=== PATIENT | female | born 1935 | race Caucasian/White ===

== ENCOUNTER 2021-12-16 20:46 | Emergency (ER) | payer MEDICARE ==
[~2021-12-16] VITALS: Ht 167.6 cm; Wt 72.6 kg
[2021-12-16] MEDS ORDERED: LISINOPRIL20 MG PO (20:50)
[2021-12-16] MEDS ORDERED: Clopidogrel75 MG PO (20:50)
[2021-12-16] MEDS ORDERED: DORZOLAMIDE 2%10 ML OP (20:52)
[2021-12-16] MEDS ORDERED: VITAMIN D PO (20:52)
[2021-12-16 21:07] LABS: BASO # 0.1 10*3/uL (0.0-0.1); BASO % 0.9 % (0.0-1.0); EOS # 0.3 10*3/uL (0.0-0.4); EOS % 3.9 % (1.0-4.0); HEMATOCRIT 38.8 % (37.0-47.0); LYMPH # 1.9 10*3/uL (1.3-4.4); LYMPH % 24.6 % (27.0-41.0); MEAN CELL VOLUME 94.6 fl (81.0-99.0); MEAN CORPUSCULAR HGB 31.5 pg (27.0-31.0); MEAN CORPUSCULAR HGB CONC 33.2 g/dl (33.0-37.0); MEAN PLATELET VOLUME 12.2 fl (9.6-12.3); MONO # 0.7 10*3/uL (0.1-1.0); MONO % 8.5 % (3.0-9.0); NEUT # 4.9 10*3/uL (2.3-7.9); NEUT % 61.7 % (47.0-73.0); PLATELET COUNT AUTOMATED 224 10*3/uL (130-400); WHITE BLOOD COUNT 7.9 10*3/uL (4.8-10.8)
[2021-12-16 21:26] LABS: ALKALINE PHOSPHATASE 89 U/L (45-117); BUN 18 mg/dl (7-24); CHLORIDE 110 mmol/L (98-107); CREATININE 0.94 mg/dL (0.55-1.02); POTASSIUM 3.8 mmol/L (3.5-5.1); SGOT/AST 23 IU/L (3-35); SGPT/ALT 21 U/L (12-78); SODIUM 141 mmol/L (136-145); TOTAL PROTEIN 7.8 gm/dL (6.4-8.2)
[2021-12-16 21:50] LABS: BILIRUBIN Negative (Negative); BLOOD Negative (Negative); CLARITY Clear (Clear); COLOR Yellow (Yellow); GLUCOSE Negative (Negative); KETONE Negative (Negative); LEUKO ESTERASE Trace (Negative); NITRITE Negative (Negative); PH 6.5 (4.5-8.0); UROBILINOGEN 0.2 E.U./dl (0.0-1.0)
[2021-12-16 22:02] LABS: BACTERIA 1+
== END 2021-12-16 22:07 | disposition home or self-care (01) ==
LOC: ED 20:46
PROVIDERS: Internal Medicine
DX: F03.91 Unspecified dementia, unspecified severity, with behavioral disturbance (principal); I12.9 Hypertensive chronic kidney disease with stage 1 through stage 4 chronic kidney disease, or unspecified chronic kidney disease; N18.31 Chronic kidney disease, stage 3a; Z79.899 Other long term (current) drug therapy

== ENCOUNTER → 2022-06-25 | Outpatient (CLI) | payer MEDICARE ==
[~2022-06-25] MED LIST: Clopidogrel75 MG PO; DORZOLAMIDE 2%10 ML OP; LISINOPRIL20 MG PO; VITAMIN D PO
== END | disposition home or self-care (01) ==
LOC: US 09:59
PROVIDERS: ATTEND Urology
DX: N85.8 Other specified noninflammatory disorders of uterus (principal)

== ENCOUNTER 2022-08-21 07:35 | Emergency (ER) | payer MEDICARE ==
[~2022-08-21] VITALS: Wt 55.8 kg
[2022-08-21] MEDS ORDERED: CELEXA10 MG PO (08:25)
[2022-08-21] MEDS ORDERED: COSOPT 2%-0.5%10 ML OPH (08:25)
[2022-08-21] MEDS ORDERED: CLOPIDOGREL75 MG PO (08:25)
[2022-08-21] MEDS ORDERED: HYDROXYZINE HCL25 MG PO (08:26)
[2022-08-21] MEDS ORDERED: LISINOPRIL20 MG PO (08:27)
[2022-08-21] MEDS ORDERED: LATANOPROST 2.2.5 ML OP (08:27)
[2022-08-21] MEDS ORDERED: MUCINEX ER600 MG PO (08:28)
[2022-08-21] MEDS ORDERED: NAMENDA10 MG PO (08:32)
[2022-08-21] MEDS ORDERED: PHENAZOPYRIDIN100 M1 PO (08:33)
[2022-08-21] MEDS ORDERED: PRESERVISION A1 EAC4 PO (08:34)
[2022-08-21] MEDS ORDERED: TYLENOL EXTRA500 MG PO (08:35)
[2022-08-21] MEDS ORDERED: VITAMIN D250 MC1 PO (08:36)
[2022-08-21 09:46] LABS: BASO # 0.1 10*3/uL (0.0-0.1); EOS # 0.3 10*3/uL (0.0-0.4); EOS % 3.4 % (1.0-4.0); HEMATOCRIT 35.8 % (37.0-47.0); LYMPH # 1.2 10*3/uL (1.3-4.4); LYMPH % 14.8 % (27.0-41.0); MEAN CORPUSCULAR HGB 31.2 pg (27.0-31.0); MEAN CORPUSCULAR HGB CONC 33.5 g/dl (33.0-37.0); MEAN PLATELET VOLUME 12.1 fl (9.6-12.3); MONO # 0.8 10*3/uL (0.1-1.0); MONO % 9.9 % (3.0-9.0); NEUT # 5.8 10*3/uL (2.3-7.9); NEUT % 70.5 % (47.0-73.0); PLATELET COUNT AUTOMATED 234 10*3/uL (130-400); RED BLOOD COUNT 3.85 10*6/uL (4.10-5.10); RED CELL DISTRI WIDTH 13.1 % (0-14.5); WHITE BLOOD COUNT 8.2 10*3/uL (4.8-10.8)
[2022-08-21 09:56] LABS: ACT PARTIAL THROMBO TIME 25.4 SECONDS (20.0-32.1)
[2022-08-21 10:02] LABS: ALKALINE PHOSPHATASE 99 U/L (45-117); BUN 18 mg/dl (7-24); CHLORIDE 108 mmol/L (98-107); CREATININE 0.97 mg/dL (0.55-1.02); LIPASE 354 U/L (73-393); POTASSIUM 4.1 mmol/L (3.5-5.1); SGPT/ALT 16 U/L (12-78); SODIUM 140 mmol/L (136-145)
== END 2022-08-21 10:51 ==
LOC: ED 07:35
PROVIDERS: Emergency Medicine
DX: N81.10 Cystocele, unspecified (principal); Z79.899 Other long term (current) drug therapy

== ENCOUNTER → 2023-03-12 | Outpatient (CLI) | payer MEDICARE, MEDICAID ==
[~2023-03-12] MED LIST changes: +CELEXA10 MG PO; +CLOPIDOGREL75 MG PO; +COSOPT 2%-0.5%10 ML OPH; +HYDROXYZINE HCL25 MG PO; +LATANOPROST 2.2.5 ML OP; +MUCINEX ER600 MG PO; +NAMENDA10 MG PO; +PHENAZOPYRIDIN100 M1 PO; +PRESERVISION A1 EAC4 PO; +TYLENOL EXTRA500 MG PO; +VITAMIN D250 MC1 PO
== END | disposition home or self-care (01) ==
LOC: US 03-06 13:00
PROVIDERS: ATTEND Urology
DX: N13.39 Other hydronephrosis (principal); N20.0 Calculus of kidney

== ENCOUNTER 2024-04-27 16:59 | Emergency (ER) | payer MEDICARE, MEDICAID ==
[2024-04-27 17:20] LABS: BILIRUBIN Negative (Negative); BLOOD Negative (Negative); CLARITY Clear (Clear); COLOR Yellow (Yellow); GLUCOSE Negative (Negative); KETONE Negative (Negative); LEUKO ESTERASE Trace (Negative); NITRITE Negative (Negative); UROBILINOGEN 0.2 E.U./dl (0.0-1.0)
[2024-04-27 17:27] LABS: URINE AMPHETAMINES Negative (1000ng/ml); URINE BARBITURATES Negative (200ng/ml); URINE BENZODIAZEPINES Negative (200ng/ml); URINE CANNABINOIDS (THC) Negative (50ng/ml); URINE COCAINE Negative (300ng/ml); URINE METHADONE Negative (300ng/ml); URINE OPIATES Negative (300ng/ml); URINE PHENCYCLIDINE Negative (25ng/ml)
[2024-04-27 17:34] LABS: EPITHELIAL CELLS 0-2; RBC 0-2 rbc/hpf (0-2)
[2024-04-27 17:47] LABS: BASO # 0.1 10*3/uL (0.0-0.1); BASO % 1.2 % (0.0-1.0); EOS # 0.4 10*3/uL (0.0-0.4); EOS % 5.4 % (1.0-4.0); HEMATOCRIT 39.1 % (37.0-47.0); LYMPH # 2.1 10*3/uL (1.3-4.4); LYMPH % 28.5 % (27.0-41.0); MEAN CELL VOLUME 96.1 fl (81.0-99.0); MEAN CORPUSCULAR HGB 31.2 pg (27.0-31.0); MEAN CORPUSCULAR HGB CONC 32.5 g/dl (33.0-37.0); MEAN PLATELET VOLUME 11.8 fl (9.6-12.3); MONO # 0.7 10*3/uL (0.1-1.0); NEUT # 3.9 10*3/uL (2.3-7.9); NEUT % 54.6 % (47.0-73.0); PLATELET COUNT AUTOMATED 201 10*3/uL (130-400); RED BLOOD COUNT 4.07 10*6/uL (4.10-5.10); RED CELL DISTRI WIDTH 13.3 % (0-14.5); WHITE BLOOD COUNT 7.2 10*3/uL (4.8-10.8)
[2024-04-27 17:58] LABS: ACT PARTIAL THROMBO TIME 26.8 SECONDS (20.0-32.1)
[2024-04-27 18:12] LABS: ALKALINE PHOSPHATASE 97 U/L (46-116); BUN 18 mg/dl (9-23); CHLORIDE 107 mmol/L (98-107); CPK 71 U/L (34-171); LIPASE 56 U/L (12-53); POTASSIUM 4.4 mmol/L (3.4-5.1); SGPT/ALT 19 U/L (5-49); TOTAL PROTEIN 7.4 gm/dL (6.0-8.0)
[2024-04-27 18:17] LABS: ETHYL ALCOHOL < 3.0 mg/dl (<3)
== END 2024-04-27 19:50 | disposition home or self-care (01) ==
LOC: ED 16:59
PROVIDERS: Internal Medicine
DX: F03.90 Unspecified dementia, unspecified severity, without behavioral disturbance, psychotic disturbance, mood disturbance, and anxiety (principal); I10 Essential (primary) hypertension

== ENCOUNTER 2024-07-11 18:12 | Emergency (ER) | payer MEDICARE, MEDICAID ==
[~2024-07-11] VITALS: Ht 162.5 cm; Wt 61.4 kg
[2024-07-11 18:38] LABS: BASO # 0.1 10*3/uL (0.0-0.1); EOS # 0.3 10*3/uL (0.0-0.4); EOS % 4.3 % (1.0-4.0); HEMATOCRIT 37.3 % (37.0-47.0); LYMPH # 2.1 10*3/uL (1.3-4.4); LYMPH % 31.5 % (27.0-41.0); MEAN CELL VOLUME 96.6 fl (81.0-99.0); MEAN CORPUSCULAR HGB 31.3 pg (27.0-31.0); MEAN CORPUSCULAR HGB CONC 32.4 g/dl (33.0-37.0); MEAN PLATELET VOLUME 12.1 fl (9.6-12.3); MONO # 0.8 10*3/uL (0.1-1.0); MONO % 11.4 % (3.0-9.0); NEUT # 3.5 10*3/uL (2.3-7.9); NEUT % 51.5 % (47.0-73.0); PLATELET COUNT AUTOMATED 156 10*3/uL (130-400); RED BLOOD COUNT 3.86 10*6/uL (4.10-5.10); RED CELL DISTRI WIDTH 13.8 % (0-14.5); WHITE BLOOD COUNT 6.8 10*3/uL (4.8-10.8)
[2024-07-11 18:54] LABS: BUN 26 mg/dl (9-23); CHLORIDE 108 mmol/L (98-107); POTASSIUM 4.1 mmol/L (3.4-5.1)
== END 2024-07-12 02:51 ==
LOC: ED 18:12
PROVIDERS: Physician Assistant Medical
DX: S40.011A Contusion of right shoulder, initial encounter (principal); S00.83XA Contusion of other part of head, initial encounter; S09.8XXA Other specified injuries of head, initial encounter; F03.90 Unspecified dementia, unspecified severity, without behavioral disturbance, psychotic disturbance, mood disturbance, and anxiety; I10 Essential (primary) hypertension; W19.XXXA Unspecified fall, initial encounter; Y93.89 Activity, other specified; Y92.129 Unspecified place in nursing home as the place of occurrence of the external cause; Y99.8 Other external cause status

== ENCOUNTER 2024-11-27 08:50 | Emergency (ER) | payer OTHER, MEDICAID ==
[~2024-11-27] VITALS: Ht 152.4 cm; Wt 52.2 kg
[2024-11-28] MEDS ORDERED: TAMIFLU 75MG CA75 MG PO (06:13)
[2024-11-28] MEDS ORDERED: MUCUS RELIEF E600 MG PO (06:13)
[2024-11-28] MEDS ORDERED: LEVOTHYROXINE25 MCG PO (06:14)
[2024-11-28] MEDS ORDERED: RIVASTIGMINE T1.5 M1 PO (06:14)
[2024-11-28] MEDS ORDERED: DEPAKOTE ER250 MG PO (06:16)
[2024-11-28] MEDS ORDERED: CLARITIN10 MG PO (06:16)
[2024-11-28] MEDS ORDERED: MELATONIN5 M7 PO (06:18)
[2024-11-28] MEDS ORDERED: PERCOCET 5-3251 EACH PO (06:52)
== END 2024-11-27 11:28 | disposition home or self-care (01) ==
LOC: ED 08:50
DX: S09.90XA Unspecified injury of head, initial encounter (principal); R55 Syncope and collapse; I25.10 Atherosclerotic heart disease of native coronary artery without angina pectoris; F03.90 Unspecified dementia, unspecified severity, without behavioral disturbance, psychotic disturbance, mood disturbance, and anxiety; I10 Essential (primary) hypertension; E78.5 Hyperlipidemia, unspecified; Z79.899 Other long term (current) drug therapy; W18.39XA Other fall on same level, initial encounter; Y93.89 Activity, other specified; Y92.89 Other specified places as the place of occurrence of the external cause; Y99.8 Other external cause status

== ENCOUNTER 2024-11-28 05:43 | Emergency (ER) | payer OTHER, MEDICAID ==
[~2024-11-28] VITALS: Ht 157.5 cm; Wt 56.7 kg
[2024-11-28] MEDS ORDERED: Acetaminophen/Oxycodone 5 MG/325 MG TABLET PO ONE (05:50)
[2024-11-28] MEDS ORDERED: MUCUS RELIEF E600 MG PO (06:13)
[2024-11-28] MEDS ORDERED: TAMIFLU 75MG CA75 MG PO (06:13)
[2024-11-28] MEDS ORDERED: RIVASTIGMINE T1.5 M1 PO (06:14)
[2024-11-28] MEDS ORDERED: LEVOTHYROXINE25 MCG PO (06:14)
[2024-11-28] MEDS ORDERED: DEPAKOTE ER250 MG PO (06:16)
[2024-11-28] MEDS ORDERED: CLARITIN10 MG PO (06:16)
[2024-11-28] MEDS ORDERED: MELATONIN5 M7 PO (06:18)
[2024-11-28] MEDS ORDERED: PERCOCET 5-3251 EACH PO (06:52)
== END 2024-11-28 09:39 | disposition home or self-care (01) ==
LOC: ED 05:43
DX: S52.532A Colles' fracture of left radius, initial encounter for closed fracture (principal); S52.612A Displaced fracture of left ulna styloid process, initial encounter for closed fracture; W19.XXXA Unspecified fall, initial encounter; Y93.89 Activity, other specified; Y92.129 Unspecified place in nursing home as the place of occurrence of the external cause; Y99.8 Other external cause status